=== PATIENT | male | born 1995 | race African-American/Black ===

== ENCOUNTER 2020-08-28 19:29 | Emergency (ER) | payer OTHER ==
[2020-08-28] MEDS ORDERED: Ketorolac Tromethamine 30 MG/ML VIAL ONE (19:38)
== END 2020-08-28 20:42 | disposition still patient (30) ==
LOC: NAV ERS 19:29
DX: M94.0 Chondrocostal junction syndrome [Tietze] (principal); F41.9 Anxiety disorder, unspecified; F43.0 Acute stress reaction; K21.9 Gastro-esophageal reflux disease without esophagitis; Z79.899 Other long term (current) drug therapy
CPT/HCPCS: 93005; 96374; J1885